=== PATIENT | male | born 1990 | race African-American/Black ===

== ENCOUNTER 2023-10-24 13:55 | Emergency (ER) | payer OTHER ==
[~2023-10-24] VITALS: Ht 182.9 cm; Wt 104.0 kg
[2023-10-24 14:32] VITALS: BP 118/80; PULSE 62; RESP 16; TEMP 97.8; O2SAT 97
[2023-10-24] MEDS: NACL 0.9% 1,000 ML IV ONE (15:38)
[2023-10-24 15:47] LABS: EOSINOPHILS # (AUTO) 0.4 K/uL (0-0.4); EOSINOPHILS % (AUTO) 7.5 % (0.0-4.0); HEMATOCRIT 45.5 % (36-52); HEMOGLOBIN 14.9 g/dL (12.0-18.0); LYMPHOCYTES # (AUTO) 1.9 K/uL (2.0-11.5); LYMPHOCYTES % (AUTO) 38.2 % (20.5-51.1); MEAN CORPUSCULAR HEMOGLOBIN 27 pg (27-31); MEAN CORPUSCULAR HGB CONC 33 g/dL (33-37); MEAN CORPUSCULAR VOLUME 81.3 fL (80-94); MONOCYTES # (AUTO) 0.4 K/uL (0.8-1.0); MONOCYTES % (AUTO) 8.5 % (1.7-9.3); NEUTROPHILS # (AUTO) 2.3 K/uL (1.8-7.7); NEUTROPHILS % (AUTO) 44.8 % (42.2-75.2); PLATELET COUNT (AUTO) 252 K/uL (140-450); RED CELL DISTRIBUTION WIDTH 14.1 % (11.6-13.7); WHITE BLOOD COUNT (AUTO) 5.1 K/uL (4.8-10.8)
[2023-10-24 15:54] LABS: ANION GAP 9.3 (8-16); CALCIUM 9.3 mg/dL (8.5-10.1); CREATININE 1.2 mg/dL (0.6-1.3); POTASSIUM 4.3 mmol/L (3.5-5.1)
[2023-10-24 16:57] VITALS: BP 115/75; PULSE 67; RESP 16; TEMP 97.8; O2SAT 97
== END 2023-10-24 16:57 | disposition home or self-care (01) ==
LOC: MED 13:55
DX: R42 Dizziness and giddiness (principal); B34.9 Viral infection, unspecified; Z88.0 Allergy status to penicillin
CPT/HCPCS: 36415; 71045; 80048; 82948; 85025; 93005; 96360; 99285; J7030; Q0092